=== PATIENT | female | born 1945 ===

== ENCOUNTER 2018-10-07 09:39 | Outpatient (CLI) | payer OTHER ==
[~2018-10-07] VITALS: Ht 157.5 cm; Wt 59.0 kg
[2018-10-07] MEDS ORDERED: FLONASE16 GM NASAL (11:03)
[2018-10-07] MEDS ORDERED: ZANTAC150 M3 PO (11:03)
[2018-10-07] MEDS ORDERED: CLARITIN10 MG PO (11:04)
[2018-10-07] MEDS ORDERED: OMEPRAZOLE40 MG PO (11:04)
== END 2018-10-07 16:01 | disposition home or self-care (01) ==
LOC: OFIC 805 09:39
DX: J31.0 Chronic rhinitis (principal); J37.0 Chronic laryngitis; R49.9 Unspecified voice and resonance disorder; H92.02 Otalgia, left ear; H93.13 Tinnitus, bilateral; K21.0 Gastro-esophageal reflux disease with esophagitis; K21.9 Gastro-esophageal reflux disease without esophagitis

== ENCOUNTER 2019-02-10 08:46 | Outpatient (CLI) | payer OTHER ==
[~2019-02-10] VITALS: Ht 152.4 cm; Wt 59.0 kg
[~2019-02-10 08:46] MED LIST: CLARITIN10 MG PO; FLONASE16 GM NASAL; OMEPRAZOLE40 MG PO; ZANTAC150 M3 PO
[2019-02-10] MEDS ORDERED: FLONASE16 GM NASAL (11:49)
[2019-02-10] MEDS ORDERED: OMEPRAZOLE40 MG PO (11:49)
[2019-02-10] MEDS ORDERED: CLARITIN10 MG PO (11:49)
== END 2019-02-10 09:45 | disposition home or self-care (01) ==
LOC: OFIC 805 08:46
DX: H90.3 Sensorineural hearing loss, bilateral (principal); H93.13 Tinnitus, bilateral; J37.0 Chronic laryngitis; J31.0 Chronic rhinitis